=== PATIENT | female | born 1975 | race Caucasian/White ===

== ENCOUNTER 2020-11-04 14:44 | Emergency (ER) | payer BC, SELFPAY ==
--- NOTE | ~2020-11-04 | XR_ITS ---
EXAMINATION: XR chest 2V EXAM DATE: 11/04/2020 15:15 INDICATION: Cough, wheezing 1month, form smoker, hx bronchitis. TECHNIQUE: Frontal and lateral projections of the chest obtained and reviewed. Comparison is made to prior examination from 06/21/2018. FINDINGS: Small amount of linear left basilar opacity most consistent with subsegmental atelectasis, new compared to prior study. The lungs are otherwise clear. There are no pleural effusions. The ca rdiomediastinal silhouette is within normal limits. There is no pneumothorax suspected. The bones a nd soft tissues are unremarkable. IMPRESSION: Left basilar linear opacities most likely atelectasis. Reviewed, dictated and finalized at location B. [employer]
[2020-11-04 15:18] VITALS: BP 143/89; PULSE 89; RESP 18; TEMP 36.9; O2SAT 99
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
[2020-11-04] MEDS: IPRATROPIUM BR 0.02% INH SOLN 0.5 MG/2.5 ML VIAL INHALATION (15:41)
[2020-11-04] MEDS: predniSONE 20 MG TABLET 60 MG PO (16:39)
== END 2020-11-04 16:40 | disposition home or self-care (01) ==
PROVIDERS: Emergency Provider Nurse Practitioner; PCP Family Medicine
DX: J40 Bronchitis, not specified as acute or chronic (principal); Z20.822 Contact with and (suspected) exposure to COVID-19; J06.9 Acute upper respiratory infection, unspecified; Z87.891 Personal history of nicotine dependence; M19.90 Unspecified osteoarthritis, unspecified site; E89.0 Postprocedural hypothyroidism; F41.9 Anxiety disorder, unspecified
CPT/HCPCS: 71046; 87426; 94640; 99213; C9803; G0463; J7512

== ENCOUNTER 2021-01-09 08:59 | Emergency (ER) | payer BC, SELFPAY ==
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
[2021-01-09 09:18] VITALS: BP 155/96; PULSE 95; RESP 18; TEMP 37.6; O2SAT 95
[2021-01-09 10:07] VITALS: BP 157/97; PULSE 97; RESP 18; O2SAT 98
== END 2021-01-09 10:07 | disposition home or self-care (01) ==
PROVIDERS: Emergency Provider Nurse Practitioner; PCP Family Medicine
DX: U07.1 COVID-19 (principal); Z87.891 Personal history of nicotine dependence; E89.0 Postprocedural hypothyroidism
CPT/HCPCS: 87081; 87426; 87880; 99213; C9803; G0463

== ENCOUNTER 2021-01-22 18:25 | Emergency (ER) | payer BC, SELFPAY ==
--- NOTE | ~2021-01-22 | XR_ITS ---
EXAMINATION: XR chest 2V DATE: 01/22/2021 18:50 INDICATION: Shortness of breath. COVID-19 positive 13 days ago. TECHNIQUE: Frontal and lateral views of the chest were obtained. COMPARISON: Chest 2 views 11/04/20 FINDINGS: The chest demonstrates clear lungs without pneumonia, pleural effusion, or pneumothorax. Th e heart size is normal. There are prominent paracardial fat pads. IMPRESSION: 1. No acute cardiopulmonary disease. Reviewed, dictated and finalized at location A.
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
[2021-01-22 18:40] VITALS: BP 140/89; PULSE 81; RESP 16; TEMP 36.9; O2SAT 97
[2021-01-22 18:52] VITALS: PULSE 81; RESP 16; O2SAT 97
[2021-01-22] MEDS: IPRATROPIUM BR 0.02% INH SOLN 0.5 MG/2.5 ML VIAL INHALATION (18:52)
[2021-01-22] MEDS: ALBUTEROL SULFATE NEB 2.5 MG/3 ML INH INHALATION (18:53)
[2021-01-22 19:25] VITALS: PULSE 89; O2SAT 100
== END 2021-01-22 19:43 | disposition home or self-care (01) ==
PROVIDERS: Emergency Provider Nurse Practitioner; PCP Family Medicine
DX: J06.9 Acute upper respiratory infection, unspecified (principal); J40 Bronchitis, not specified as acute or chronic; Z87.891 Personal history of nicotine dependence; M19.90 Unspecified osteoarthritis, unspecified site; E03.9 Hypothyroidism, unspecified
CPT/HCPCS: 71046; 99213; G0463

== ENCOUNTER 2021-09-06 14:58 | Emergency (ER) | payer BC, SELFPAY ==
[2021-09-06 15:10] VITALS: BP 151/86; PULSE 97; RESP 16; TEMP 37.3; O2SAT 99
[2021-09-06 15:32] VITALS: BP 151/86; PULSE 97; RESP 16; TEMP 37.3; O2SAT 99
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
== END 2021-09-06 17:20 | disposition home or self-care (01) ==
PROVIDERS: Emergency Provider Nurse Practitioner; PCP Family Medicine
DX: B34.9 Viral infection, unspecified (principal); Z20.822 Contact with and (suspected) exposure to COVID-19; M19.90 Unspecified osteoarthritis, unspecified site; Z86.16 Personal history of COVID-19; E89.0 Postprocedural hypothyroidism
CPT/HCPCS: 87081; 87426; 87804; 87880; 99213; C9803; G0463

== ENCOUNTER 2021-09-21 07:34 | Outpatient (CLI) | payer BC, SELFPAY ==
--- NOTE | 2021-09-21 07:43 | ECHO_ITS ---
Patient Info Name: Isreal Matthews Age: 46 years : 1975 Gender: Female Ht: 63 in Wt: 250 lbs BSA: 2.31 m2 HR: 69 bpm Technical Quality: Fair Exam Date: 09/21/2021 8:15 AM Exam Location: [facility] Patient Status: Outpatient Admit Date: 09/21/2021 Staff Ordering Physician: Nicole Antoine MD Drawer In: FRANK /MARCELA Attending Provider: Nicole Antoine MD Referring Physician: Elina MILLS; Exam Type: CA echo doppler color flow Study Info Indications - POST COVID MIXED HYPERLIPIDEMIA Complete two-dimensional, color flow and Doppler transthoracic echocardiogram is performed. Summary 1. Complete two-dimensional, color flow and Doppler transthoracic echocardiogram is performed. 2. Left ventricular chamber dimension is normal. 3. Left ventricular systolic function is normal, estimated at 60-65%. 4. The left ventricular diastolic function is normal. 5. E/e' 7 is not elevated. 6. Left atrial chamber dimension is mildly enlarged. 7. There is trace tricuspid valve regurgitation. Left Ventricle E/e' 7 is not elevated. Left ventricular chamber dimension is normal. Left ventricular systolic function is normal, estimated at 60-65%. The left ventricular diastolic function is normal. Right Ventricle Right ventricular systolic function is normal and with normal TAPSE 2.7 cm. Right ventricular chamber dimension is normal. Left Atria Left atrial chamber dimension is mildly enlarged. Right Atria Right atrial chamber dimension is normal. Aortic Valve The aortic valve is trileaflet. There is no aortic valve stenosis. There is no aortic valve regurgitation. Pulmonic Valve There is no pulmonic regurgitation. Mitral Valve There is no mitral valve stenosis. There is no mitral valve regurgitation. Tricuspid Valve There is trace tricuspid valve regurgitation. RVSP is not calculated due to an inadequate TR jet. Pericardium/Pleural There is no pericardial effusion. Inferior Vena Cava Normal inferior vena cava with >50% collapse upon inspiration consistent with normal right atrial pressure, 5 mmHg. Aorta The aortic root size at the sinus of Valsalva is normal. Left Ventricular Outflow Tract Name Value Normal LVOT 2D LVOT Diameter 1.9 cm LVOT Doppler LVOT Peak Gradient 3 mmHg LVOT Mean Gradient 2 mmHg LVOT VTI 20 cm LVOT VTI/AV VTI Ratio 0.8 LVOT Stroke Volume 57 ml LVOT CO 3.9 l/min LVOT CI 1.7 l/min/m2 Pulmonic Valve Name Value Normal PV Doppler PV Peak Gradient 4 mmHg Mitral Valve Name
== END 2021-09-21 07:35 | disposition home or self-care (01) ==
PROVIDERS: PCP Family Medicine; Visit Provider Family Medicine
DX: U07.1 COVID-19 (principal); I51.7 Cardiomegaly; E78.2 Mixed hyperlipidemia; B94.8 Sequelae of other specified infectious and parasitic diseases; Z82.49 Family history of ischemic heart disease and other diseases of the circulatory system
CPT/HCPCS: 93306

== ENCOUNTER 2024-11-06 00:30 | Day surgery (SDC) | payer BC, SELFPAY ==
[2024-10-23 11:19] VITALS: BMI 39.2
[2024-11-06 06:18] VITALS: BP 133/83; PULSE 90; RESP 18; TEMP 36.1; O2SAT 98; BMI 39.3
[2024-11-06] MEDS: LACTATED RINGERS 1,000 ML 150 ML IV CONT (06:21)
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
[2024-11-06 07:52] VITALS: BP 92/65; PULSE 80; RESP 29; O2SAT 98
[2024-11-06 08:02] VITALS: BP 105/61; PULSE 72; RESP 17; O2SAT 100
[2024-11-06 08:12] VITALS: BP 116/62; PULSE 69; RESP 16; O2SAT 100
== END 2024-11-06 08:21 | disposition home or self-care (01) ==
PROVIDERS: PCP Family Medicine; Visit Provider Internal Medicine Gastroenterology
PROC: 0DJD8ZZ Inspection of Lower Intestinal Tract, Via Natural or Artificial Opening Endoscopic (ICD-10-PCS; CPT 45378; principal; 2024-11-06 07:30)
DX: Z12.11 Encounter for screening for malignant neoplasm of colon (principal); Z86.0100 Personal history of colon polyps, unspecified; Z87.891 Personal history of nicotine dependence
CPT/HCPCS: 45378; J2003; J2704; J7120

== ENCOUNTER 2025-07-01 08:15 | Outpatient (CLI) | payer BC, SELFPAY ==
--- NOTE | ~2025-07-01 | XR_ITS ---
XR lumbar spine 2-3V Indication: Polyarthralgia; CHRONIC LBP Comparison: None Findings: The vertebral heights are intact. No fracture or subluxation. The disc heights are intact. Soft tissues unremarkable Impression: No acute abnormality. Reviewed, dictated and finalized at location A. Impression: No acute abnormality.
--- NOTE | ~2025-07-01 | XR_ITS ---
EXAMINATION: XR knee RT 3V, 07/01/2025 8:35 CDT HISTORY: Polyarthralgia; CHRONIC RT KNEE JOINT PAIN COMPARISON: No comparisons available. Findings: No acute fracture or malalignment. No significant degenerative changes. Soft tissues unremarkable. Impression: No acute fracture or malalignment. Reviewed, dictated and finalized at location A. Impression: No acute fracture or malalignment.
--- NOTE | ~2025-07-01 | XR_ITS ---
EXAMINATION: XR knee LT 3V, 07/01/2025 8:35 CDT HISTORY: Polyarthralgia; CHRONIC LT KNEE JOINT PAIN COMPARISON: No comparisons available. Findings: No acute fracture or malalignment. No significant degenerative changes. Soft tissues unremarkable. Impression: No acute fracture or malalignment. Reviewed, dictated and finalized at location A. Impression: No acute fracture or malalignment.
== END 2025-07-01 08:16 | disposition home or self-care (01) ==
PROVIDERS: PCP Family Medicine; Visit Provider Physician Assistant
DX: M25.50 Pain in unspecified joint (principal)
CPT/HCPCS: 72100; 73562